=== PATIENT | male | born 1995 | race Caucasian/White ===

== ENCOUNTER 2019-04-01 15:30 | Inpatient (IN) | payer BC, OTHER ==
[~2019-04-01] VITALS: Ht 172.7 cm; Wt 140.0 kg
--- NOTE | 2019-04-01 16:00 | PHYS DOC ---
Past History Past Medical History: Other Past Surgical History: Other Smoking: Second-hand Alcohol Use: None Drug Use: None Adult General Chief Complaint Chief Complaint: SKIN PROBLEM HPI HPI 23-year-old male presents with abdominal skin rash. The patient has noticed a rash for a few days. He has had a fever for the last 2 days. The rash on his abdomen has grown substantially in the last 24 hours. There has been drainage from the central area of the rash. He is concerned about infection. Patient denies any other symptoms except for the rash and chills. Review of Systems Review of Systems Constitutional: Fever[] Eyes: Denies change in visual acuity, redness, or eye pain [] HENT: Denies nasal congestion or sore throat [] Respiratory: Denies cough or shortness of breath [] Cardiovascular: No additional information not addressed in HPI [] GI: Denies abdominal pain, nausea, vomiting, bloody stools or diarrhea [] : Denies dysuria or hematuria [] Musculoskeletal: Denies back pain or joint pain [] Integument: Rash[] Neurologic: Denies headache, focal weakness or sensory changes [] Endocrine: Denies polyuria or polydipsia [] All other systems were reviewed and found to be within normal limits, except as documented in this note. Current Medications Current Medications Current Medications Medications (Trade) Dose Ordered Sig/[facility] Start Time Stop Time Status Last Admin Dose Admin Sodium Chloride 2,040 ml @ 2,040 mls/hr Q1H 04/01/19 15:45 Allergies Allergies Allergies Coded Allergies Type Severity Reaction Last Updated Verified Erythromycin Base Allergy Unknown Swelling 06/06/13 Yes Physical Exam Physical Exam Constitutional: Well developed, well nourished, no acute distress, non-toxic appearance. [] HENT: Normocephalic, atraumatic, bilateral external ears normal, oropharynx moist, no oral exudates, nose normal. [] Eyes: PERRLA, EOMI, conjunctiva normal, no discharge. [] Neck: Normal range of motion, no tenderness, supple, no stridor. [] Cardiovascular: Heart rate 117, regular rhythm, no murmur [] Lungs & Thorax: Bilateral breath sounds clear to auscultation [] Abdomen: Bowel sounds normal, soft, no tenderness, no masses, no pulsatile masses. [] Skin: 8 x 20 cm erythematous, warm skin on the inferior abdomen, central area of fluctuance with overlying scab. Consistent with cellulitis and abscess.[] Back: No tenderness, no CVA tenderness. [] Extremities: No tenderness, no cyanosis, no clubbing, ROM intact, no edema. [] Neurologic: Alert and oriented X 3, normal motor function, normal sensory function, no focal deficits noted. [] Psychologic: Affect normal, judgement normal, mood normal. [] EKG EKG [] Radiology/Procedures Radiology/Procedures [] Course & Med Decision Making Course & Med Decision Making Pertinent Labs and Imaging studies reviewed. (See chart for details) On arrival, the patient was tachycardic, had a fever, and a likely source of infection. He meets sepsis criteria. I ordered 30 mL/kg of ideal body weight as his BMI is over 30. I've also ordered a lactic acid and blood cultures. These are all pending. I will give him vancomycin and Zosyn. I performed an incision and drain on the abscess. See note for more details. A culture of the wound was obtained. I discussed the patient with Dr. Sanchez and he has accepted him for admission. 39 minutes of critical care time was spent on this patient exclusive of other billable procedures. [] Dragon Disclaimer Dragon Disclaimer This electronic medical record was generated, in whole or in part, using a voice recognition dictation system. Incision and Drainage Indication: Cellulitis with abscess of the abdomen Procedure: Verbal consent was obtained from the patient for incision and drainage of abdominal abscess. The area was cleaned with alcohol. I anesthetized the area with 2% lidocaine with epinephrine. A total of 2 mL was used. An #11 blade was used to make a 4 mm incision. There was pertinent drainage. Wound culture was obtained. Loculations were broken up with a sterile Q-tip. There was tracking of the wound to the left about 7 cm. Further purulent material was expressed. The patient tolerated the procedure well Complications: None Departure Departure: Impression: Primary Impression: Cellulitis, abdominal wall Additional Impression: Sepsis Disposition: ADMITTED INPATIENT Admitting Physician: Shayla Sanchez Condition: STABLE Referrals: PCP,NO (PCP) Sepsis Assessment: Date and Time of Assessment Date: Apr 01, 2019 Time: 15:57 Vital Signs Vital Signs Tachycardic, blood pressure within normal limits. Respirations Respiratory Effort: Normal Respiratory Pattern: Normal Cardiovascular Pulse Rhythm: Regular HEART: No murmurs noted Lung Sounds Breath Sounds: Clear Capillary Refill Capillary Refill: Rt Hand < 3 seconds Peripheral Pulse Pulse Location: Monitor Pulse Strength: Normal (2+) Pulse Assessment Method: Monitor Integumentary Skin: Rash Skin Moisture: Dry Skin Turgor: Normal Skin Color: warm, erythema Fingernail Color: WNL Sepsis Assessment: Date and Time of Assessment Date: Apr 01, 2019 Time: 17:01 Vital Signs Vital Signs Blood pressure normal, heart rate is improved Respirations Respiratory Effort: Normal Respiratory Pattern: Normal Cardiovascular Pulse Rhythm: Regular HEART: No murmurs noted Capillary Refill Capillary Refill: Rt Hand < 3 seconds Peripheral Pulse Pulse Location: Monitor Pulse Strength: Normal (2+) Pulse Assessment Method: Monitor Integumentary Skin: Rash Skin Moisture: Dry Skin Turgor: Normal Skin Color: erythema Fingernail Color: WNL Problem Qualifiers Additional Impression: Sepsis Sepsis type: methicillin resistant Staphylococcus aureus Sepsis acute organ dysfunction status: without acute organ dysfunction Qualified Codes: A41.02 - Sepsis due to methicillin resistant Staphylococcus aureus GLORIA BIRMINGHAM DO Apr 01, 2019 16:00
[2019-04-01] MEDS: IV NORMAL SALINE 1,000ML 2,040 ML IV SCH ×5 (16:18→19:45)
[2019-04-01 16:32] LABS: BASO # 0.1 x10^3/uL (0.0-0.2); BASO % 0 % (0-3); EOS % 0 % (0-3); HEMATOCRIT 44.3 % (39.0-53.0); HEMOGLOBIN 14.5 g/dL (13.0-17.5); LYMPH # 0.9 x10^3/uL (1.0-4.8); LYMPH % 7 % (24-48); MEAN CORPUSCULAR HEMOGLOBIN 29 pg (25-35); MEAN CORPUSCULAR HGB CONC 33 g/dL (31-37); MEAN CORPUSCULAR VOLUME 88 fL (79-100); MONO % 8 % (0-9); NEUT % 85 % (31-73); PLATELET COUNT 235 x10^3/uL (140-400); RED BLOOD COUNT 5.01 x10^6/uL (4.30-5.70); RED CELL DISTRIBUTION WIDTH 13.5 % (11.5-14.5)
[2019-04-01] MEDS ORDERED: PIPERACILLIN/TAZOBACTAM 3.375 GM in IV NORMAL SALINE 50ML 50 ML IV ONE (17:00)
[2019-04-01] MEDS ORDERED: ONDANSETRON PF 4 MG/2 ML VIAL. IV PRN (17:00)
[2019-04-01] MEDS ORDERED: VANCOMYCIN 1.5 GM in IV NORMAL SALINE 500ML 500 ML IV ONE (17:00)
[2019-04-01] MEDS ORDERED: PIPERACILLIN/TAZOBACTAM 3.375 GM VIAL IV ONE (17:04)
[2019-04-01] MEDS ORDERED: IV NORMAL SALINE 50ML 50 ML ONE (17:04)
[2019-04-01] MEDS: ACETAMINOPHEN 325 MG TABLET PO PRN ×2 (17:23→21:38)
[2019-04-01 17:41] LABS: CALCIUM 8.4 mg/dL (8.5-10.1); CREATININE 1.1 mg/dL (0.7-1.3); POTASSIUM 3.8 mmol/L (3.5-5.1)
[2019-04-01 17:56] LABS: ALBUMIN 3.3 g/dL (3.4-5.0); ALBUMIN/GLOBULIN RATIO 0.8 (1.0-1.7); TOTAL BILIRUBIN 0.9 mg/dL (0.2-1.0); TOTAL PROTEIN 7.5 g/dL (6.4-8.2)
[2019-04-01 18:08] VITALS: BP 107/39
--- NOTE | 2019-04-01 18:56 | NUR ---
The patient, SHAVONNE CASTRO, 23 y/o, M admitted by ALISSA WHITFIELD MD, was given written information regarding hospital policies, unit procedures and contact persons. Patient arrived to the unit via gurney transported by EMS from the ER. Patient is alert and oriented x 4. Patient is accompanied to the unit by mom and sister. Patient was febrile 102.8 Orally, Tylenol was given in the ER. Other vitals signs were BP 107/39 RR 14 SPO2 95 on RA. Patient was started on sepsis protocol but did not trigger severe sepsis protocol on unit. Valuables were checked and recorded in interventions. Report was given to oncoming RN.
[2019-04-01 19:02] VITALS: BP 104/49
[2019-04-01] MEDS ORDERED: VANCOMYCIN PER PHARMACY MC PRN (19:30)
[2019-04-01] MEDS ORDERED: PIP/TAZO PER PHARMACY MC PRN (19:30)
[2019-04-01] MEDS: IV NORMAL SALINE 1,000ML 1,000 ML IV SCH (19:41)
[2019-04-01 20:01] VITALS: BP 113/64
--- NOTE | 2019-04-01 20:02 | NUR ---
Pharmacy Vancomycin Dosing Note S:Consulted to monitor and dose vancomycin started 04/01/19. O:SHAVONNE CASTRO is a 23 year old M with Cellulitis, . Height: 5 feet, 8 inches Weight: 135.5 kg [place] Body Weight: 68.40 Adjusted Body Weight: 95.24 Dosing Weight: Actual Other Antibiotics: ZOSYN 3.375GM IV Q6HRS LABS: Last BUN: 11 Last Creatinine: 1.1 Creatinine Clearance: 140.70 Last WBC: 13.0 Vancomycin Dosing: Loading Dose: 1500 mg x1 Dosing Weight: Actual Target Trough: 10-20 A: Based on: Actual weigth, renal function, and indication P: 1. Begin Vancomycin 2000 mg IV q8h 2. Follow up Trough level on 04/02/19 at 1630 3. Pharmacy will continue to monitor, follow and adjust therapy as needed. JASON BRISENO, 04/01/192001
[2019-04-01] MEDS: LACTOBACILLUS RHAMNOSUS GG 1 CAPSULE. PO SCH (21:38)
[2019-04-01 21:45] VITALS: BP 126/85
[2019-04-01 22:00] VITALS: BP 116/79
[2019-04-01 23:00] VITALS: BP 117/69
[2019-04-01] MEDS: PIPERACILLIN/TAZOBACTAM 3.375 GM in IV NORMAL SALINE 50ML 50 ML IV SCH (23:51)
[2019-04-02] VITALS (20 sets, daily range): BP systolic 103–154; BP diastolic 39–97
[2019-04-02] MEDS: VANCOMYCIN 2 GM in IV NORMAL SALINE 500ML 500 ML IV SCH ×3 (01:20→17:21)
[2019-04-02] MEDS: ACETAMINOPHEN 325 MG TABLET PO PRN ×2 (04:01→14:28)
[2019-04-02] MEDS: IV NORMAL SALINE 1,000ML 1,000 ML IV SCH ×2 (05:53→14:29)
[2019-04-02] MEDS: PIPERACILLIN/TAZOBACTAM 3.375 GM in IV NORMAL SALINE 50ML 50 ML IV SCH ×4 (05:53→23:41)
[2019-04-02 06:23] LABS: BASO # 0.1 x10^3/uL (0.0-0.2); BASO % 1 % (0-3); EOS % 0 % (0-3); HEMATOCRIT 38.3 % (39.0-53.0); HEMOGLOBIN 12.5 g/dL (13.0-17.5); LYMPH # 1.8 x10^3/uL (1.0-4.8); LYMPH % 16 % (24-48); MEAN CORPUSCULAR HEMOGLOBIN 29 pg (25-35); MEAN CORPUSCULAR HGB CONC 33 g/dL (31-37); MEAN CORPUSCULAR VOLUME 88 fL (79-100); MONO # 1.1 x10^3/uL (0.0-1.1); MONO % 10 % (0-9); NEUT # 8.4 x10^3uL (1.8-7.7); NEUT % 74 % (31-73); PLATELET COUNT 196 x10^3/uL (140-400); RED BLOOD COUNT 4.35 x10^6/uL (4.30-5.70); RED CELL DISTRIBUTION WIDTH 13.9 % (11.5-14.5); WHITE BLOOD COUNT 11.3 x10^3/uL (4.0-11.0)
--- NOTE | 2019-04-02 06:32 | NUR ---
Minimal bloody drainage from pinpoint opening at lower midline abdomen through night. When palpating the pt's lower abdomen, it is much firmer than the upper abdomen. Area cleansed and foam dressing changed. Pt reports mild discomfort, but tolerated well. Wound culture pending from ED.
[2019-04-02 06:40] LABS: ALBUMIN 2.9 g/dL (3.4-5.0); ALBUMIN/GLOBULIN RATIO 0.7 (1.0-1.7); CALCIUM 7.9 mg/dL (8.5-10.1); GFR 92.6; POTASSIUM 3.5 mmol/L (3.5-5.1); TOTAL BILIRUBIN 1.1 mg/dL (0.2-1.0); TOTAL PROTEIN 6.9 g/dL (6.4-8.2)
--- NOTE | 2019-04-02 07:20 | NUR ---
wound care patient seen per wound care consult. see wound assessment. patient has an abscess on the abdomen that had an I & D in the ER, the area was cleaned, measured and redressed with a foam dressing, patient has a creamy purulent drainage. the wound has redness surrounding the area with induration, recommendations of an ultrasound. notified CHILO Baker about the POC and wound care will continue to f/u.
[2019-04-02] MEDS: LACTOBACILLUS RHAMNOSUS GG 1 CAPSULE. PO SCH ×2 (08:14→21:14)
--- NOTE | 2019-04-02 08:38 | NUR ---
IP: patient has pending wound culture suspicious for MRSA, requires contact precautions until MRSA ruled out.
--- NOTE | 2019-04-02 12:15 | RAD ---
Examination: ABDOMEN LTD History: Lower abdominal swelling Comparison/Correlation: None Findings: Ultrasound imaging of the lower abdominal wall was performed. Within the lower abdomen, there is a 2.2 cm tall by 1 cm x 1.4 cm hypoechoic irregularly marginated collection. Associated edema is noted about this finding. Impression: Small collection within the lower abdominal wall at the site of reported erythema and pain. Associated subcutaneous edema. Electronically signed by: Lorenzo Reyes MD (04/02/2019 12:12 PM) [id number]
[2019-04-02 16:51] LABS: VANC TR 10.3 mcg/mL (10.0-20.0)
--- NOTE | 2019-04-02 18:41 | HP ---
ADMIT DATE: 04/01/2019 HISTORY OF PRESENT ILLNESS: The patient is a 23-year-old male patient who came to the Emergency Room complaining of abdominal skin rash that they noticed a few days ago. It started as a pimple and increased in size and became more painful and there has been some drainage from the central area of the rash. He is concerned about infection. He denied any other symptoms except rash and chills. He was evaluated in the Emergency Room and his lab work. He was found to be febrile with temperature of 102.2. He has mild leukocytosis and has had an ultrasound of his abdominal wall, which showed that there is a 2.2 cm tall x 1 cm x 1.4 cm hypoechoic ____ noted about this finding. The patient was admitted with abdominal wall cellulitis and abscess that was incised and drained. Swabs were sent for culture as well as blood culture and was started on IV antibiotic in the form of Zosyn and vancomycin. He was also septic and therefore, he was given IV fluid as per protocol and was admitted to the ICU for further evaluation and treatment. PAST MEDICAL HISTORY: Unremarkable except for bronchial asthma that he outgrow. PAST SURGICAL HISTORY: Unremarkable. ALLERGIES: ALLERGIC TO ERYTHROMYCIN. MEDICATIONS: No medication. FAMILY HISTORY: Noncontributory. SOCIAL HISTORY: Single, never , has no children. He does not smoke, drink alcohol or use recreational drugs. 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 REVIEW OF SYSTEMS: As per history of present illness. PHYSICAL EXAMINATION: GENERAL: On arrival to the Emergency Room, he looked well and was clearly in no apparent respiratory distress. No pallor, jaundice, cyanosis or thyromegaly. No jugular venous distention. No limb edema. VITAL SIGNS: His heart rate was 117, blood pressure was 117/69, temperature was 102.2, respiratory rate was 20, and oxygen saturation was 94%. HEAD, EYES, EARS, NOSE AND THROAT: Showed normocephalic, atraumatic. NECK: Supple. HEART: Showed normal first and second heart sounds. No gallop, rub or murmur. CHEST: Clear to auscultation. No crepitation or rhonchi. ABDOMEN: Distended, soft, nontender. He has an area of erythema and abdominal abscess that was obviously incised and drained by the ER physician. There is no tenderness except to the erythematous areas. No guarding or rigidity. No organomegaly. All hernial orifices intact. Bowel sounds normal. NEUROLOGIC: He was grossly intact. LABORATORY DATA: Showed a white cell count of 13,000, hemoglobin 14.5, hematocrit 44, MCV 88 and platelet count 235,000. Serum sodium was 141, potassium 3.8, chloride 105, bicarbonate 25, anion gap of 11, BUN 11, creatinine 1.1, estimated GFR was 83 mL per minute. His glucose was 93. Lactic acid was only 1.1, calcium was 8.4. Total bilirubin, AST, ALT, alkaline phosphatase were normal. Total protein was 7.5, albumin was 3.3. ASSESSMENT AND PLAN: Abdominal wall abscess and cellulitis. He is now on IV vancomycin and Zosyn. Continue with IV fluid, continue with pain medication and Tylenol and await the result of the culture and sensitivity. ALISSA WHITFIELD MD DR: RENU/amrit JOB#: [id number] / [id number]
--- NOTE | 2019-04-02 22:08 | PN ---
DATE: 04/02/2019 SUBJECTIVE: The patient is resting, slightly propped up in bed, in no apparent distress, continued to complain of some abdominal pain and some chills, fever. PHYSICAL EXAMINATION: GENERAL: When I saw him this afternoon, he was pale. No jaundice, cyanosis or thyromegaly. No jugular venous distention. No limb edema. VITAL SIGNS: His heart rate was 115, blood pressure was 121/83, temperature was 101.5, respiratory rate was 20, and oxygen saturation was 96%. HEAD, EYES, EARS, NOSE AND THROAT: Showed normocephalic, atraumatic. NECK: Supple. HEART: Showed normal first and second heart sounds. No gallop, rub or murmur. CHEST: Clear to auscultation. No crepitation or rhonchi. ABDOMEN: Distended, soft, nontender. NEUROLOGIC: He was awake, alert, responding appropriately. All cranial nerves intact. He moves extremities without difficulty. LABORATORY DATA: His lab work this morning showed white cell count down to 11,300, hemoglobin 12.5, hematocrit 38, MCV 88 and platelet count of 196,000. Serum sodium was 142, potassium 3.5, chloride 106, bicarbonate 24, anion gap of 12, BUN 10, creatinine 1, estimated GFR was 93 mL per minute. His glucose was 90, calcium was 7.9. Total bilirubin is 1.1. AST, ALT, alkaline phosphatase were normal. Total protein was 6.9, albumin was 2.9. ASSESSMENT: Abdominal wall abscess and cellulitis. PLAN: To continue with IV antibiotic. Await the culture and sensitivity. ALISSA WHITFIELD MD DR: RENU/amrit JOB#: [id number] / [id number]
[2019-04-02] MEDS: KETOROLAC 30 MG/ML VIAL. IVP PRN (23:46)
[2019-04-03] VITALS (11 sets, daily range): BP systolic 116–157; BP diastolic 67–96
[2019-04-03] MEDS: VANCOMYCIN 2 GM in IV NORMAL SALINE 500ML 500 ML IV SCH ×3 (01:00→16:48)
[2019-04-03] MEDS: IV NORMAL SALINE 1,000ML 1,000 ML IV SCH ×2 (01:30→11:30)
--- NOTE | 2019-04-03 04:39 | NUR ---
Pt rested comfortably through much of the night. C/o mild discomfort to lower abdomen. Toradol given per order, effective. Foam dressing changed this AM, scant sanguineous drainage noted.
[2019-04-03] MEDS: PIPERACILLIN/TAZOBACTAM 3.375 GM in IV NORMAL SALINE 50ML 50 ML IV SCH ×4 (06:08→19:00)
[2019-04-03] MEDS: ACETAMINOPHEN 325 MG TABLET PO PRN ×2 (08:02→16:41)
[2019-04-03] MEDS: LACTOBACILLUS RHAMNOSUS GG 1 CAPSULE. PO SCH ×2 (08:02→21:44)
[2019-04-03 08:36] LABS: BASO # 0.1 x10^3/uL (0.0-0.2); BASO % 1 % (0-3); EOS # 0.1 x10^3/uL (0.0-0.7); EOS % 1 % (0-3); HEMATOCRIT 39.7 % (39.0-53.0); LYMPH # 1.5 x10^3/uL (1.0-4.8); LYMPH % 16 % (24-48); MEAN CORPUSCULAR HEMOGLOBIN 29 pg (25-35); MEAN CORPUSCULAR HGB CONC 33 g/dL (31-37); MEAN CORPUSCULAR VOLUME 88 fL (79-100); MONO # 0.7 x10^3/uL (0.0-1.1); MONO % 8 % (0-9); NEUT # 6.9 x10^3uL (1.8-7.7); NEUT % 75 % (31-73); PLATELET COUNT 201 x10^3/uL (140-400); RED BLOOD COUNT 4.51 x10^6/uL (4.30-5.70); RED CELL DISTRIBUTION WIDTH 13.6 % (11.5-14.5); WHITE BLOOD COUNT 9.3 x10^3/uL (4.0-11.0)
[2019-04-03 08:48] LABS: ALBUMIN 2.7 g/dL (3.4-5.0); ALBUMIN/GLOBULIN RATIO 0.6 (1.0-1.7); CALCIUM 8.3 mg/dL (8.5-10.1); CREATININE 1.3 mg/dL (0.7-1.3); GFR 68.4; POTASSIUM 3.7 mmol/L (3.5-5.1); TOTAL BILIRUBIN 0.7 mg/dL (0.2-1.0)
[2019-04-03] MEDS: KETOROLAC 30 MG/ML VIAL. IVP PRN (16:41)
--- NOTE | 2019-04-03 19:33 | PN ---
DATE: 04/03/2019 SUBJECTIVE: The patient is resting, slightly propped up in bed, in no apparent distress. He continued to have pain in his abdomen around the abdominal wall abscess. However, the erythema is fading gradually, has no nausea or vomiting. He is afebrile. I saw him this afternoon, he looked well and was clearly in no apparent respiratory distress. No pallor, jaundice, cyanosis or thyromegaly. No jugular venous distention. No limb edema. OBJECTIVE: VITAL SIGNS: His heart rate was 94, blood pressure 156/84, temperature was 99.4. His oxygen saturation was 96% on room air. HEAD, EYES, EARS, NOSE AND THROAT: Showed normocephalic, atraumatic. NECK: Supple. CARDIAC: Normal first and second heart sounds. No gallop, rub or murmur. CHEST: Clear to auscultation. No crepitation or rhonchi. ABDOMEN: Distended, soft, nontender. The erythema is fading gradually, but not completely yet. There is no tenderness around the abscess site, but no guarding or rigidity. No organomegaly. All hernial orifice intact. Bowel sounds normal. NEUROLOGIC: He is awake, alert, responding appropriately. All cranial nerves intact. He moves extremities without difficulty, ambulates without assistance or assistive devices. His intake was 4515, no output was recorded. LABORATORY DATA: As of this morning showed a white cell count 9300, hemoglobin 13, hematocrit 39, MCV 88 and platelet count 201,000. Serum sodium was 143, potassium 3.7, chloride 107, bicarbonate 26, anion gap of 10, BUN 13, creatinine 1.3, estimated GFR was 68 mL per minute. His glucose was 88, calcium was 8.3. Total bilirubin, AST, ALT, alkaline phosphatase were normal. Total protein was 7, albumin was 2.7. His blood cultures showed no growth after 1 day. ASSESSMENT: Abdominal wall cellulitis and abdominal wall abscess, status post incision and drainage. PLAN: To continue with IV antibiotic in the form of vancomycin and Zosyn. Await the result of the culture and sensitivity. Once we have that, we can deescalate the antibiotic and switch him to oral antibiotic. Continue treatment as an outpatient. ALISSA WHITFIELD MD DR: RENU/amrit JOB#: [id number] / [id number]
--- NOTE | 2019-04-03 22:44 | NUR ---
Order Verified Yes Consent signed Yes Previous PICC placement No Past Medical/Surgical history and current diagnosis reviewed Yes Patient Medical /Surgical History Related to PICC line placement None Special considerations for PICC line placement None PICC placement indication custodial antibiotic usage, Name of PICC Nurse Cherie Carmona RN
--- NOTE | 2019-04-03 22:46 | NUR ---
Procedure: Following complete explanation of the PICC procedure including the indications, risks, and potential complications, informed consent was obtained. The possibility for infection was discussed along with signs, symptoms, and prevention. All the patient's questions were answered. IV Device Protocol was used. Written and verbal patient education was provided. Hand hygiene performed. Standardized central line checklist was utilized. The patient was placed in the supine position, the rightarm was prepped with chlorhexidine and patient draped with maximum sterile barrier. 1.5 mL 1% lidocaine was infiltrated into the skin to provide local anesthesia. A thorough assessment of the right upper extremity completed. Using real-time ultrasound guidance and standardized micro puncture set, the basilic vein was punctured and a peel away sheath was placed using the modified Seldinger technique. A tip location device was used to ensure adequate catheter placement. The catheter was secured using a securement device and an antimicrobial patch was applied directly on the insertion site followed by a transparent dressing. the single port withdrew blood and flushed without resistance. Patient tolerated the procedure without apparent complication. A single Lumen Power PICC placement successful and uncomplicated. Placement verified by EKG tip confirmation system with green p wave and ekg confirmation observed. Tip located in the ACJ per 3CG Complications:None
[2019-04-04] MEDS: PIPERACILLIN/TAZOBACTAM 3.375 GM in IV NORMAL SALINE 50ML 50 ML IV SCH ×3 (00:01→12:00)
[2019-04-04 00:09] VITALS: BP 135/96
[2019-04-04] MEDS: VANCOMYCIN 2 GM in IV NORMAL SALINE 500ML 500 ML IV SCH ×2 (00:46→09:00)
[2019-04-04 03:10] VITALS: BP 147/94
[2019-04-04 06:32] VITALS: BP 158/95
[2019-04-04 07:03] LABS: HEMATOCRIT 35.7 % (39.0-53.0); HEMOGLOBIN 11.9 g/dL (13.0-17.5); RED BLOOD COUNT 4.08 x10^6/uL (4.30-5.70); RED CELL DISTRIBUTION WIDTH 13.3 % (11.5-14.5); WHITE BLOOD COUNT 9.4 x10^3/uL (4.0-11.0)
[2019-04-04 07:15] LABS: ALBUMIN 2.5 g/dL (3.4-5.0); ALBUMIN/GLOBULIN RATIO 0.6 (1.0-1.7); CALCIUM 8.3 mg/dL (8.5-10.1); CREATININE 1.9 mg/dL (0.7-1.3); GFR 44.1; POTASSIUM 3.4 mmol/L (3.5-5.1); TOTAL BILIRUBIN 0.5 mg/dL (0.2-1.0); TOTAL PROTEIN 6.8 g/dL (6.4-8.2)
[2019-04-04] MEDS: LACTOBACILLUS RHAMNOSUS GG 1 CAPSULE. PO SCH (08:36)
[2019-04-04] MEDS ORDERED: POTASSIUM CHLORIDE 20 MEQ TABLET.ER. PO ONE (09:00)
[2019-04-04 09:13] LABS: VANC TR 30.1 mcg/mL (10.0-20.0)
[2019-04-04] MEDS ORDERED: IV NORMAL SALINE 1,000ML 1,000 ML IV ONE (09:30)
--- NOTE | 2019-04-04 10:00 | NUR ---
Dr Sanchez notified of critical findings, orders for NS bolus. Patient and mother informed of antibiotic changes and educated on new lab findings.
[2019-04-04 10:30] VITALS: BP 139/80
[2019-04-04] MEDS ORDERED: IV NORMAL SALINE 1,000ML 1,000 ML IV SCH (11:15)
[2019-04-04 12:59] LABS: CALCIUM 8.2 mg/dL (8.5-10.1); CREATININE 1.9 mg/dL (0.7-1.3); GFR 44.1; POTASSIUM 3.8 mmol/L (3.5-5.1)
[2019-04-04] MEDS: ACETAMINOPHEN 325 MG TABLET PO PRN (13:24)
--- NOTE | 2019-04-04 14:00 | NUR ---
Patient back from shower and feeling much better, clean dressing applied. Prior to shower dressing removed, noted moderate amount of creamy yellow drainage to abdomen. When assessing abdomen, noted abdomen to be soft around area of drainage but to left side area was hard, warm and tender. Dr Sanchez notified.
--- NOTE | 2019-04-04 14:44 | PN ---
DATE: 04/04/2019 SUBJECTIVE: The patient is resting, slightly propped up in bed, in no apparent distress. He denied any complaint; however, his serum creatinine has dramatically risen from ____ to 1.9 this morning. His blood cultures so far showed no growth after 2 days; however, his abdominal abscess swab for culture showed growth of gram-positive cocci. PHYSICAL EXAMINATION: GENERAL: When I examined him this morning, he was sitting up in no apparent distress. No pallor, jaundice, cyanosis or thyromegaly. No jugular venous distention. No limb edema. VITAL SIGNS: His heart rate was 98, blood pressure was 158/95, temperature was 99.4, respiratory rate was 16, and oxygen saturation was 98%. HEAD, EYES, EARS, NOSE AND THROAT: Showed normocephalic, atraumatic. NECK: Supple. HEART: Normal first and second heart sounds. No gallop, rub or murmur. CHEST: Clear to auscultation. No crepitation or rhonchi. ABDOMEN: Distended, soft. He has marked areas of induration mostly in the left lower quadrant concerning for possible abscess. Dressing has been changed multiple times as it is soaked with purulent drainage. NEUROLOGIC: He is awake, alert, responding appropriately. All cranial nerves are intact. He moves extremities without difficulty, ambulates without assistance or assistive devices. His intake over the last 24 hours was 4150, no output was recorded. LABORATORY DATA: His lab work this morning showed a serum sodium 143, potassium 3.4, chloride 109, bicarbonate 26, anion gap of 8, BUN 15, creatinine was 1.9, estimated GFR was 44 mL per minute. His glucose was 86, calcium was 8.3. Total bilirubin and alkaline phosphatase were normal. AST, ALT slightly elevated. Total protein was 6.8, albumin 2.5. His white cell count was 9400, hemoglobin 12, hematocrit 36, MCV 88 and platelet count ____. His vancomycin trough level was extremely high at 30.1. ASSESSMENT: Abdominal wall abscess and abdominal wall cellulitis for which he is on IV vancomycin and Zosyn. Acute kidney injury with creatinine has dramatically risen from ____ to 1.9 for which we discontinued the vancomycin altogether. Start him on Zyvox. He has marked abdominal wall induration and tenderness concerning for abdominal wall abscess for which I will arrange for him to have a soft tissue ultrasound and if there is any drainable fluid, I will transfer him to [facility]. ALISSA WHITFIELD MD DR: RENU/amrit JOB#: [id number] / [id number]
--- NOTE | 2019-04-04 14:53 | RAD ---
Examination: Ultrasound abdomen limited HISTORY: History of abscess COMPARISON: 04/02/2019 Findings/ impression: Ultrasound of the abdominal wall extending from the midline to the left lower quadrant demonstrates 3 fluid collections measuring 3.6 cm, 3.7 cm and 2.3 cm appear to be connected to one another could be a long fluid collection measuring total of 9.6 cm, abscess is not excluded. Compared to prior exam this appears to have increased. Correlate clinically. CT may be useful for further evaluation. Electronically signed by: Rafael Dyson MD (04/04/2019 2:50 PM) [facility]
[2019-04-04 15:18] VITALS: BP 153/85
--- NOTE | 2019-04-04 15:51 | NUR ---
Nursing school transportation supervisor notified of transfer, awaiting for med surg bed for Surgical consult. Dr Sanchez informed family and patient at this time of patient requiring transfer.
[2019-04-04 16:32] VITALS: BP 148/71
--- NOTE | 2019-04-04 17:18 | NUR ---
[facility] notified of transfer at this time, consents and family aware and will be going to room 418. Belongings will be going with mother, including cell phone and wallet. Patients PICC line capped. Dressing intact and wound picture taken. Report called to CHILO Matthews at [facility].
== END 2019-04-04 17:35 | disposition short-term general hospital (02) | DRG 853 ==
LOC: ER 15:30 → ICU 17:35
PROVIDERS: ADMIT Internal Medicine; ATTEND Internal Medicine
PROC: 0W9F0ZX Drainage of Abdominal Wall, Open Approach, Diagnostic (ICD-10-PCS; principal; 2019-04-01)
DX: A41.02 Sepsis due to Methicillin resistant Staphylococcus aureus (principal); E43 Unspecified severe protein-calorie malnutrition; L03.311 Cellulitis of abdominal wall; L02.211 Cutaneous abscess of abdominal wall; N17.9 Acute kidney failure, unspecified; Z68.42 Body mass index [BMI] 45.0-49.9, adult; J45.909 Unspecified asthma, uncomplicated; Z88.8 Allergy status to other drugs, medicaments and biological substances
CPT/HCPCS: 10060; 36415; 36569; 76705; 80048; 80053; 80202; 83605; 85025; 85027; 87040; 87070; 87186; 96365; J1885; J2543; J3010; J3370; J7040; 99285-25; J7030